=== PATIENT | male | born 1965 | race Asian ===

== ENCOUNTER 2021-09-25 09:20 | Day surgery (SDC) | payer OTHER, SELFPAY ==
[2021-09-21 10:45] LABS: BILIRUBIN,URINE NEGATIVE (NEGATIVE); BLOOD, URINE NEGATIVE (NEGATIVE); CLARITY/URINE CLEAR (CLEAR); COLOR,URINE YELLOW (YELLOW); GLUCOSE,URINE NEGATIVE (NEGATIVE); KETONES,URINE NEGATIVE (NEGATIVE); LEUKOCYTE ESTERASE ,URINE NEGATIVE (NEGATIVE); NITRITE, URINE NEGATIVE (NEGATIVE); PROTEIN URINE NEGATIVE (NEGATIVE); UROBILINOGEN,URINE 0.2 (0.2-1.0)
[2021-09-21 10:57] LABS: BASOPHILS % (AUTO) 0.6 % (0.0-2.0); EOSINOPHILS # (AUTO) 0.3 K/uL (0.0-0.4); EOSINOPHILS % (AUTO) 4.6 % (0.0-4.0); HEMATOCRIT 42.2 % (36-54); HEMOGLOBIN 14.3 g/dL (14.0-18.0); LYMPHOCYTES % (AUTO) 29.9 % (20.5-51.5); MEAN CORPUSCULAR HEMOGLOBIN 30 pg (27-31); MEAN CORPUSCULAR HGB CONC 34 % (32-36); MEAN CORPUSCULAR VOLUME 89 fL (79.0-98.0); MONOCYTES # (AUTO) 0.6 K/uL (0.0-1.0); MONOCYTES % (AUTO) 8.9 % (1.7-9.3); NEUTROPHILS # (AUTO) 3.8 K/uL (1.8-7.7); PLATELET COUNT (AUTO) 230 K/uL (130-430); RED BLOOD CELL COUNT(AUTO) 4.75 MIL/uL (4.2-6.2); RED CELL DISTRIBUTION WIDTH 13.5 % (9.0-15.0); WHITE BLOOD COUNT (AUTO) 6.8 K/uL (4.8-10.8)
[2021-09-21 11:01] LABS: CALCIUM 9.2 mg/dL (8.4-11.0); CREATININE 0.9 mg/dL (0.55-1.30); POTASSIUM 4.2 mmol/L (3.5-5.1)
[2021-09-21 11:05] LABS: PROTHROMBIN TIME 10.4 SECS (9.5-12.5)
[~2021-09-25] VITALS: Ht 177.8 cm; Wt 84.8 kg
[~2021-09-25 09:20] MED LIST: OLME40TA12 PO; TOPXL100 PO
[2021-09-25] MEDS ORDERED: LIDOCAINE 2%, 20 ML MDV ONE (12:20)
[2021-09-25] MEDS ORDERED: PROPOFOL 200MG/ 20ML VIAL (DIPRIVAN) IV ONE (12:20)
[2021-09-25] MEDS ORDERED: SEVOFLURANE 15 MIN GAS INH ONE (12:20)
[2021-09-25] MEDS ORDERED: fentaNYL CITRATE/PF 100 MCG/2 ML AMP ONE (12:20)
[2021-09-25] MEDS ORDERED: WATER FOR IRRIGATION,STERILE 1,000 ML IRRIG.SOLN IR ONE (12:20)
[2021-09-25] MEDS ORDERED: BUPIVACAINE /PF 0.25% 30 ML VIAL INJ ONE (12:20)
[2021-09-25] MEDS ORDERED: MIDAZOLAM HCL 5 MG/ML VIAL (VERSED) IV ONE (12:20)
[2021-09-25] MEDS ORDERED: GLYCOPYRROLATE 0.2 MG/ML VIAL ONE (12:20)
[2021-09-25] MEDS ORDERED: LR 1,000 ML IV.SOLN IV ONE (12:20)
[2021-09-25] MEDS ORDERED: ONDANSETRON HCL 4 MG/2 ML VIAL ONE (12:20)
[2021-09-25] MEDS ORDERED: METOCLOPRAMIDE HCL 10 MG/2 ML VIAL ONE (12:20)
[2021-09-25] MEDS ORDERED: HYDROmorphone 2 MG/ML VIAL IVP PRN (12:30)
[2021-09-25] MEDS ORDERED: KETOROLAC TROMETHAMINE 30 MG VIAL IVP PRN (12:30)
[2021-09-25] MEDS ORDERED: ONDANSETRON HCL 4 MG/2 ML VIAL IVP PRN (12:30)
[2021-09-25] MEDS ORDERED: HYDROmorphone 1 MG/ML INJ. CARTRIDGE IVP PRN (12:30)
[2021-09-25] MEDS ORDERED: LR 1,000 ML IV SCH (12:30)
[2021-09-25 16:35] VITALS: BP_SYST 115
== END 2021-09-25 14:50 | disposition home or self-care (01) ==
LOC: SDS 09:20 → SMU 09:24 → SDS 14:50
PROVIDERS: ATTEND Orthopaedic Surgery
DX: M65.331 Trigger finger, right middle finger (principal); I10 Essential (primary) hypertension; Z79.01 Long term (current) use of anticoagulants; Z79.899 Other long term (current) drug therapy; Z20.822 Contact with and (suspected) exposure to COVID-19
CPT/HCPCS: 26055; 36415; 71046; 80048; 81003; 85025; 85610; 85730; 93005; J2001; J2250; J2405; J2704; J2765; J3010; J3490 ×2; J7120; U0003